=== PATIENT | female | born 1995 | race African-American/Black ===

== ENCOUNTER 2016-09-03 21:16 | Emergency (ER) | payer OTHER ==
[~2016-09-03] VITALS: Ht 154.9 cm; Wt 102.1 kg
--- NOTE | ~2016-09-03 | EKG ---
[address] [place] [address] ELECTROCARDIOGRAM REPORT Name: COURTNEY MCNULTY [id number] Admission: 09/03/16 Attend Phys: Discharge: 09/03/16 Date of : 89 Report #: [id number] THIS REPORT FOR: //name// [facility] ED Test Date: 2016-09-03 Test Time: 21:33:38 Pat Name: COURTNEY MCNULTY Department: Room: Gender: F [employer]: MARISSA LIM : 1995 Requested By: Memo Rousseau Order Number: [id number] MD: Jurgen Mederos Measurements Intervals [place] Rate: 79 P: 18 AK: 155 QRS: 30 QRSD: 84 T: 28 QT: 377 QTc: 433 Interpretive Statements Sinus rhythm No significant abnormality No previous ECG available for comparison Electronically Signed On 09-04-2016 8:03:28 CDT by Jurgen Mederos [email or web address] <ELECTRONICALLY SIGNED> By: Jurgen Mederos MD, [facility] 09/04/16 [id number] Jurgen Mederos MD, FAC /EPI
[~2016-09-03 21:16] MED LIST: TRIAMCINOLONE A80 G2 TOP; TYLENOL325 MG PO; ZPAK PO
[2016-09-03] MEDS ORDERED: DELTASONE20 MG PO (22:28)
[2016-09-03] MEDS ORDERED: MOBIC15 MG PO (22:28)
[2016-09-03 22:40] VITALS: BP 102/58
== END 2016-09-03 22:43 | disposition home or self-care (01) ==
LOC: ER 21:16
DX: R07.89 Other chest pain (principal); J34.89 Other specified disorders of nose and nasal sinuses; Z88.0 Allergy status to penicillin

== ENCOUNTER 2019-09-26 18:11 | Emergency (ER) | payer BC, OTHER ==
[~2019-09-26] VITALS: Ht 152.4 cm; Wt 104.3 kg
[~2019-09-26 18:11] MED LIST changes: +DELTASONE20 MG PO; +FLEXERIL PO; +MOBIC15 MG PO; +NAPROSYN500 MG PO; +NORCO 5-325 TA1 EACH PO
[2019-09-26 18:35] LABS: URINE BLOOD 3+ (Negative); URINE GLUCOSE-RANDOM* NEGATIVE (Negative); URINE KETONES TRACE (Negative); URINE LEUKOCYTES-REFLEX TRACE (Negative); URINE NITRITE-REFLEX NEGATIVE (Negative); URINE PROTEIN (DIPSTICK) 2+ (Negative); URINE SPECIFIC GRAVITY >= 1.030 (1.005-1.035); URINE UROBILINOGEN 0.2 E.U./dl (0.2-1.0)
[2019-09-26 18:37] LABS: ICTOTEST (BILI CONFIRMATORY) Negative (Negative); URINE BILIRUBIN NEGATIVE (Negative); URINE CLARITY CLOUDY; URINE COLOR RED
[2019-09-26 18:53] LABS: BACTERIA-REFLEX 1-9 Few /HPF (None Seen); CASTS None Seen /LPF (None Seen); CRYSTALS None Seen /LPF (None Seen); SQUAMOUS 0-3 Few /LPF (0-3); URINE RBC >20 Many /HPF (0-2); URINE WBC-REFLEX 0-5 Rare /HPF (0-5)
[2019-09-26] MEDS ORDERED: PROVERA10 MG PO (20:00)
[2019-09-26 20:20] LABS: ABSOLUTE NEUTROPHILS 2.7 thou/uL (1.4-8.2); BASOPHILS 1.2 % (0.0-2.0); EOSINOPHILS 2.1 % (0.0-3.0); HEMATOCRIT 25.3 % (37.0-47.0); HEMOGLOBIN 8.2 gm/dL (12.0-15.0); MCH 24.7 pg (26.0-34.0); MCHC 32.6 g/dL (28.0-37.0); MCV 75.8 fL (80.0-100.0); MONOCYTES 8.1 % (1.0-8.0); PLATELET COUNT 326 thou/uL (150-400); POLYS 55.6 % (36.0-66.0); RBC 3.34 mil/uL (4.20-5.00); RDW 15.5 % (10.5-14.5); WBC 4.9 thou/uL (4.0-11.0)
[2019-09-26 20:24] VITALS: BP 115/82
== END 2019-09-26 20:20 | disposition home or self-care (01) ==
LOC: ER 18:11
PROVIDERS: Emergency Medicine; Physician Assistant
DX: N92.0 Excessive and frequent menstruation with regular cycle (principal); R42 Dizziness and giddiness; Z88.0 Allergy status to penicillin

== ENCOUNTER 2020-02-17 16:47 | Emergency (ER) | payer OTHER ==
[~2020-02-17] VITALS: Ht 152.4 cm; Wt 81.7 kg
[~2020-02-17 16:47] MED LIST changes: +PROVERA10 MG PO
[2020-02-17 18:30] VITALS: BP 118/69
== END 2020-02-17 18:46 | disposition home or self-care (01) ==
LOC: ER 16:47
DX: L25.9 Unspecified contact dermatitis, unspecified cause (principal); Z79.899 Other long term (current) drug therapy; Z88.0 Allergy status to penicillin

== ENCOUNTER 2020-09-21 21:39 | Emergency (ER) | payer OTHER ==
[~2020-09-21] VITALS: Ht 152.4 cm; Wt 104.3 kg
[2020-09-21 22:27] LABS: HEMOGLOBIN 6.8 gm/dL (12.0-15.0); MCH 19.1 pg (26.0-34.0); MCHC 29.9 g/dL (28.0-37.0); MCV 63.8 fL (80.0-100.0)
[2020-09-21 22:28] LABS: HEMATOCRIT 22.8 % (37.0-47.0); RBC 3.57 mil/uL (4.20-5.00); RDW 20.8 % (10.5-14.5); WBC 5.9 thou/uL (4.0-11.0)
[2020-09-21] MEDS ORDERED: SPRINTEC1 EACH PO (23:33)
[2020-09-21 23:57] VITALS: BP 129/71
== END 2020-09-21 23:52 | disposition home or self-care (01) ==
LOC: ER 21:39
PROVIDERS: Emergency Medicine
DX: N93.8 Other specified abnormal uterine and vaginal bleeding (principal); R42 Dizziness and giddiness; Z79.899 Other long term (current) drug therapy; Z88.1 Allergy status to other antibiotic agents; Z88.0 Allergy status to penicillin